=== PATIENT | female | born 1945 | race Caucasian/White ===

== ENCOUNTER 2016-08-14 10:41 | Outpatient (CLI) | payer MEDICARE, OTHER ==
--- NOTE | 2016-08-14 20:03 | RAD ---
RIGHT HUMERUS TWO VIEWS 08/14/16 The humeral shaft appears intact. The fracture through the humeral head which has been described on the shoulder films is visible on at least one of these views. IMPRESSION: Nondisplaced fracture of the humeral head. Code T POS: HOME
--- NOTE | 2016-08-14 20:13 | RAD ---
RIGHT SHOULDER THREE VIEWS 08/14/16 There is a subtle nondisplaced fracture of the lateral aspect of the humeral head. There is no dislo cation. The AC joint is normal in width. There might be a little irregularity along the inferior lip of the glenoid but this is less certain. The proximal humerus appears intact. IMPRESSION: Nondisplaced fracture through the cortical surface of the humeral head laterally. POS: HOME
== END 2016-08-14 10:42 | disposition home or self-care (01) ==
LOC: BURRAD 10:41
PROVIDERS: ATTEND Family Medicine
DX: S40.911A Unspecified superficial injury of right shoulder, initial encounter (principal); S42.294A Other nondisplaced fracture of upper end of right humerus, initial encounter for closed fracture

== ENCOUNTER 2016-09-16 10:45 | Outpatient (CLI) | payer MEDICARE, OTHER ==
--- NOTE | 2016-09-16 16:30 | RAD ---
RIGHT SHOULDER TWO VIEWS: Date: 09-16-16 FINDINGS: A frontal view as well as a Y view were obtained. No fracture or dislocation was appreciated. The AC joint is upper normal in width but shows no off set. The scapula and visible adjacent ribs appeared intact. IMPRESSION: No acute bony finding. POS: [facility]
== END 2016-09-16 10:46 | disposition home or self-care (01) ==
LOC: BURRAD 10:45
PROVIDERS: ATTEND Orthopaedic Surgery
DX: S42.302A Unspecified fracture of shaft of humerus, left arm, initial encounter for closed fracture (principal)